=== PATIENT | female | born 1955 | race Caucasian/White ===

== ENCOUNTER 2023-02-18 06:42 | Emergency (ER) | payer MEDICARE, OTHER ==
[~2023-02-18] VITALS: Ht 167.6 cm; Wt 80.7 kg
[2023-02-18] MEDS ORDERED: AMITRIPTYLINE H25 MG PO (07:49)
[2023-02-18] MEDS ORDERED: ZESTRIL5 MG PO (07:50)
[2023-02-18] MEDS ORDERED: OMEPRAZOLE20 MG PO (07:50)
[2023-02-18] MEDS ORDERED: DOXYCYCLINE HY100 MG PO (08:11)
[2023-02-18 08:27] VITALS: BP 124/84
== END 2023-02-18 08:31 | disposition home or self-care (01) ==
LOC: ED 06:42
DX: S11.81XA Laceration without foreign body of other specified part of neck, initial encounter (principal); T81.31XA Disruption of external operation (surgical) wound, not elsewhere classified, initial encounter; X58.XXXA Exposure to other specified factors, initial encounter; Z88.0 Allergy status to penicillin; Z88.5 Allergy status to narcotic agent; Z79.899 Other long term (current) drug therapy
CPT/HCPCS: 12042; 99282-25